=== PATIENT | female | born 1980 | race Caucasian/White ===

== ENCOUNTER 2018-05-22 07:55 | Emergency (ER) | payer SELFPAY ==
[~2018-05-22] VITALS: Ht 170.2 cm; Wt 80.0 kg
[~2018-05-22 07:55] MED LIST: CIPR500T93 PO
[2018-05-22 08:02] VITALS: BP 155/94; PULSE 100; RESP 20; TEMP 98.7; O2SAT 97
[2018-05-22] MEDS ORDERED: CYCL10TA PO (09:08)
[2018-05-22] MEDS ORDERED: ADDE20 PO (09:08)
[2018-05-22] MEDS ORDERED: ZOLO25TA PO (09:08)
--- NOTE | 2018-05-22 09:22 | PD ---
HPI Chief Complaint: Pain: Acute or Chronic Time Seen by Provider: 09:21 Travel History International Travel<30 days: No Contact w/Intl Traveler<30days: No Traveled to known affect area: No History of Present Illness HPI 37-year-old female came to the emergency room with history of left-sided chest wall pain and tenderness since last night. Patient says she has been unable to sleep because of the pain. In fact in the middle of the night she woke up crying. The pain radiates to her left breast and under the breasts. She has never had this kind of pain before. She has also noticed that she has been randomly bruising on her legs and arms recently. There has not been any trauma. Patient is not on any medications on a regular basis. She is a smoker. Her mother is here with her. Patient was slightly tachycardic in triage but otherwise normal vital signs. Patient says the pain is worse when she lays back or takes a deep breath. No history of DVT or PEs. No history of family DVTs or PEs. No history of cough or fever. No history of hemoptysis. [facility] Past Medical History Narrative Medical List of her past medical, surgical, social and family history reviewed from the nursing note Anxiety: Yes ?: Not Past Surgical History Other Surgery: Yes (sinus) Social History Alcohol Use: No Tobacco Use: Yes Substance Use: No Allergies-Medications (Allergen,Severity, Reaction): Coded Allergies: penicillin G (Unverified Allergy, Severe, RASH, 05/22/18) Comments List of her allergies reviewed from the nursing note. Reported Meds & Prescriptions Reported Meds & Active Scripts Active Ibuprofen 600 Mg Tab 600 Mg PO Q6H PRN Reported Flexeril (Cyclobenzaprine HCl) 10 Mg Tab 10 Mg PO TID Adderall (Amphetamine-Dextroamphetamine) 20 Mg Tab 20 Mg PO DAILY Avoid late evening doses. Space doses at least 4 to 6 hours if more than once/day dosing. Zoloft (Sertraline HCl) 25 Mg Tab 25 Mg PO DAILY Narrative Medication List of her home medications reviewed from the nursing note. Review of Systems Except as stated in HPI: all other systems reviewed are Neg Cardiovascular: Positive: Chest Pain or Discomfort Physical Exam Narrative GENERAL: Awake, alert, anxious SKIN: Focused skin assessment warm/dry. Multiple old bruising on bilateral lower extremities and upper extremities. They vary in size of a dime to a quarter. HEAD: Atraumatic. Normocephalic. EYES: Pupils equal and round. No scleral icterus. No injection or drainage. ENT: No nasal bleeding or discharge. Mucous membranes pink and moist. NECK: Trachea midline. No JVD. CARDIOVASCULAR: Regular rate and rhythm. No murmur appreciated. RESPIRATORY: No accessory muscle use. Clear to auscultation. Breath sounds equal bilaterally. GASTROINTESTINAL: Abdomen soft, non-tender, nondistended. Hepatic and splenic margins not palpable. MUSCULOSKELETAL: No obvious deformities. No clubbing. No cyanosis. No edema. Tender on the left chest wall at third rib midclavicular line. NEUROLOGICAL: Awake and alert. No obvious cranial nerve deficits. Motor grossly within normal limits. Normal speech. PSYCHIATRIC: Appropriate mood and affect; insight and judgment normal. Data Data Last Documented VS Vital Signs Date Time Temp Pulse Resp B/P (MAP) Pulse Ox O2 Delivery O2 Flow Rate FiO2 05/22/18 11:36 84 15 116/78 (91) 99 05/22/18 10:03 Room Air 05/22/18 08:02 98.7 Orders Orders Electrocardiogram (05/22/18 09:49) Complete Blood Count With Diff (05/22/18 09:49) Comprehensive Metabolic Panel (05/22/18 09:49) D-Dimer (05/22/18 09:49) Magnesium (Mg) (05/22/18 09:49) Prothrombin Time / Inr (Pt) (05/22/18 09:49) Act Partial Throm Time (Ptt) (05/22/18 09:49) Troponin I (05/22/18 09:49) Ecg Monitoring (05/22/18 09:49) Bilateral Bp Monitoring (05/22/18 09:49) Iv Access Insert/Monitor (05/22/18 09:49) Oximetry (05/22/18 09:49) Oxygen Administration (05/22/18 09:49) Sodium Chloride 0.9% Flush (Ns Flush) (05/22/18 10:00) Chest, Pa & Lat (05/22/18 09:49) Ketorolac Inj (Toradol Inj) (05/22/18 10:00) Ed Discharge Order (05/22/18 11:19) Labs Laboratory Tests Test 05/22/18 10:15 White Blood Count 8.9 TH/MM3 Red Blood Count 3.85 MIL/MM3 Hemoglobin 12.6 GM/DL Hematocrit 37.1 % Mean Corpuscular Volume 96.3 FL Mean Corpuscular Hemoglobin 32.7 PG Mean Corpuscular Hemoglobin Concent 34.0 % Red Cell Distribution Width 15.4 % Platelet Count 289 TH/MM3 Mean Platelet Volume 8.9 FL Neutrophils (%) (Auto) 59.6 % Lymphocytes (%) (Auto) 24.6 % Monocytes (%) (Auto) 11.0 % Eosinophils (%) (Auto) 3.7 % Basophils (%) (Auto) 1.1 % Neutrophils # (Auto) 5.3 TH/MM3 Lymphocytes # (Auto) 2.2 TH/MM3 Monocytes # (Auto) 1.0 TH/MM3 Eosinophils # (Auto) 0.3 TH/MM3 Basophils # (Auto) 0.1 TH/MM3 CBC Comment DIFF FINAL Differential Comment Prothrombin Time 10.3 SEC Prothromb Time International Ratio 1.0 RATIO Activated Partial Thromboplast Time 23.6 SEC D-Dimer Quantitative (PE/DVT) 0.32 MG/L FEU Blood Urea Nitrogen 10 MG/DL Creatinine 0.70 MG/DL Random Glucose 88 MG/DL Total Protein 6.9 GM/DL Albumin 3.4 GM/DL Calcium Level 8.4 MG/DL Magnesium Level 2.0 MG/DL Alkaline Phosphatase 72 U/L Aspartate Amino Transf (AST/SGOT) 23 U/L Alanine Aminotransferase (ALT/SGPT) 28 U/L Total Bilirubin 0.3 MG/DL Sodium Level 139 MEQ/L Potassium Level 3.7 MEQ/L Chloride Level 106 MEQ/L Carbon Dioxide Level 22.0 MEQ/L Anion Gap 11 MEQ/L Estimat Glomerular Filtration Rate 95 ML/MIN Troponin I LESS THAN 0.02 NG/ML MDM Medical Decision Making Medical Screen Exam Complete: Yes Emergency Medical Condition: Yes Medical Record Reviewed: Yes Interpretation(s) Twelve-lead EKG was reviewed by me. Normal sinus rhythm, normal axis, nonspecific ST-T wave changes. Heart rate of 82 bpm Differential Diagnosis Pneumothorax, PE, chest wall pain, coagulopathy Narrative Course 11:25 AM blood test results are back and within normal limit. D-dimer is normal. Chest x-ray is read negative by radiologist. Patient was given Toradol for the pain. At this point I have no further testing to do in the emergency department. I have asked the patient to take pain medications that I will prescribe and apply warm compresses alternating with cold compress. There is a possibility that patient's bruising as well as the pain could be from injuries. I have noticed that she has been very jittery and restless and has had some flinging movement of her arms and legs. Patient has ADHD. She could have injured herself during the sleep. Patient will be discharged home. Procedures EKG Prior to Arrival: No Diagnosis Primary Impression: Chest wall pain Referrals: [facility] Additional Instructions: Return to the ER if condition worsens any other new concerns. Otherwise follow- up with your primary care or [facility] whose information has been given to you. Med/Other Pt SpecificInfo: Prescription(s) given Scripts Ibuprofen (Ibuprofen) 600 Mg Tab 600 MG PO Q6H Y for Pain/Inflammation, #40 TAB 0 Refills Prov: Marleni Abebe MD 05/22/18 Disposition: DISCHARGE HOME Condition: Stable Marleni Abebe MD May 22, 2018 09:22
[2018-05-22] MEDS ORDERED: KETOROLAC TROMETHAMINE 30 MG/ML (IVP) VIAL IV PUSH ONE (10:00)
[2018-05-22] MEDS ORDERED: SODIUM CHLORIDE 0.9% FLUSH 10 ML FLUSH IVF PRN (10:00)
[2018-05-22 10:03] VITALS: O2SAT 97
[2018-05-22 10:05] VITALS: BP 118/73; PULSE 95
[2018-05-22 10:06] VITALS: BP 116/78; PULSE 98
[2018-05-22 10:26] LABS: AUTOMATED NEUTROPHIL # 5.3 TH/MM3 (1.8-7.7); BASOPHIL # 0.1 TH/MM3 (0-0.2); BASOPHIL % 1.1 % (0.0-2.0); EOSINOPHIL # 0.3 TH/MM3 (0-0.4); EOSINOPHIL % 3.7 % (0.0-4.0); HEMATOCRIT 37.1 % (35.0-46.0); HEMOGLOBIN 12.6 GM/DL (11.6-15.3); LYMPH % 24.6 % (9.0-44.0); LYMPHOCYTE # 2.2 TH/MM3 (1.0-4.8); MEAN CELL VOLUME 96.3 FL (80.0-100.0); MEAN CORPUSCULAR HEMOGLOBIN 32.7 PG (27.0-34.0); MEAN PLATELET VOLUME 8.9 FL (7.0-11.0); NEUT % 59.6 % (16.0-70.0); PLATELET COUNT 289 TH/MM3 (150-450); RED BLOOD COUNT 3.85 MIL/MM3 (4.00-5.30); RED CELL DISTRIBUTION WIDTH 15.4 % (11.6-17.2); WHITE BLOOD COUNT 8.9 TH/MM3 (4.0-11.0)
--- NOTE | 2018-05-22 10:37 | RADRPT ---
EXAM DATE: 05/22/2018 10:25 AM EDT AGE/SEX: 37 years / Female INDICATIONS: Left sided chest pain and shortness of breath. CLINICAL DATA: This is the patient's initial encounter. Patient reports that signs and symptoms have been present for 1 day and indicates a pain score of 4/10. MEDICAL/SURGICAL HISTORY: None. None. COMPARISON: No prior exams available for comparison. FINDINGS: PA and lateral views of the chest demonstrate the lungs to be symmetrically aerated without evidence of mass, infiltrate or effusion. The cardiomediastinal contours are unremarkable. Osseous structures are intact. CONCLUSION: Negative for acute process. No pneumothorax or displaced rib fracture. Electronically signed by: Chuckie Velez MD 05/22/2018 10:36 AM EDT
[2018-05-22 10:40] LABS: PROTHROMBIN TIME - PATIENT 10.3 SEC (9.8-11.6)
[2018-05-22 10:41] LABS: D-DIMER 0.32 MG/L FEU (0.00-0.50)
[2018-05-22 10:58] LABS: ALBUMIN 3.4 GM/DL (3.4-5.0); AST (GOT) 23 U/L (15-37); BLOOD UREA NITROGEN 10 MG/DL (7-18); CALCIUM 8.4 MG/DL (8.5-10.1); CHLORIDE 106 MEQ/L (98-107); GLOMERULAR FILTRATION RATE 95 ML/MIN (>89); GLUCOSE,RANDOM 88 MG/DL (74-106); SODIUM (NA) 139 MEQ/L (136-145)
[2018-05-22 10:59] LABS: ALT (GPT) 28 U/L (10-53)
[2018-05-22 11:03] LABS: ALKALINE PHOSPHATASE 72 U/L (45-117); TOTAL BILIRUBIN ADULT 0.3 MG/DL (0.2-1.0); TOTAL PROTEIN 6.9 GM/DL (6.4-8.2); TROPONIN I LESS THAN 0.02 NG/ML (0.02-0.05)
[2018-05-22] MEDS ORDERED: IBUP-232 PO (11:29)
[2018-05-22 11:36] VITALS: BP 116/78
--- NOTE | 2018-05-22 20:02 | EKG ---
Date Performed: 05/22/2018 Time Performed: 10:11:11 PTAGE: 37 years EKG: Sinus rhythm NORMAL ECG NO PREVIOUS TRACING DOCTOR: Malena Alford Interpretating Date/Time 05/22/2018 20:01:06
== END 2018-05-22 11:37 | disposition home or self-care (01) ==
LOC: NEPD 07:55
DX: R07.89 Other chest pain (principal); R00.0 Tachycardia, unspecified; F41.9 Anxiety disorder, unspecified; Z72.0 Tobacco use; Z88.0 Allergy status to penicillin
CPT/HCPCS: 71046; 80053; 83735; 84484; 85025; 85379; 85610; 85730; 93005; 96374; 99285; J1885